=== PATIENT | male | born 1975 | race Two or more races ===

== ENCOUNTER 2017-08-08 22:16 | Emergency (ER) | payer SELFPAY ==
[2017-08-08 22:29] VITALS: BP 114/75; PULSE 78; RESP 20; TEMP 98.1; O2SAT 98
--- NOTE | 2017-08-09 07:19 | C.PDOC ---
History Of Present Illness 41 y/o male is brought to the ED by ambulance for evaluation of a head injury. Patient possibly had two falls and sustained a laceration to the back of his head and an injury to his face. Patient is now alert and oriented and denies LOC. He admit to drinking alcohol earlier today. Otherwise, he denies vision change, neck pain, nausea, vomiting. Time Seen by Provider: 08/08/17 22:37 Chief Complaint (Nursing): Abnormal Skin Integrity History Per: Patient History/Exam Limitations: no limitations Onset/Duration Of Symptoms: Hrs Current Symptoms Are (Timing): Still Present Additional History Per: Patient Past Medical History Reviewed: Historical Data, Nursing Documentation, Vital Signs Vital Signs: Last Vital Signs Temp 98.1 F 08/08/17 22:28 Pulse 78 08/08/17 22:28 Resp 20 08/08/17 22:28 BP 114/75 08/08/17 22:28 Pulse Ox 98 08/09/17 07:22 - Medical History PMH: No Chronic Diseases Surgical History: No Surg Hx Family History: States: Unknown Family Hx - Social History Hx Alcohol Use: Yes Hx Substance Use: No Review Of Systems Eyes: Negative for: Vision Change Neurological: Negative for: Other (LOC ) Psych: Positive for: Other (EtOH intoxication ) Physical Exam - Physical Exam Appears: Non-toxic, No Acute Distress Skin: Normal Color, Warm, Dry Head: Abrasion (left forehead), Laceration (2.5cm stellate to occipital scalp ) , No Other (bony tenderness ) Eye(s): bilateral: Normal Inspection, PERRL, EOMI Oral Mucosa: Moist Neck: Supple Chest: Symmetrical, No Deformity, No Tenderness Cardiovascular: Rhythm Regular, No Murmur Respiratory: Normal Breath Sounds, No Rales, No Rhonchi, No Wheezing Gastrointestinal/Abdominal: Normal Exam, Soft, No Tenderness Back: Normal Inspection Extremity: Normal ROM, Capillary Refill (less than 2 seconds ) Extremity: Bilateral: Atraumatic Neurological/Psych: Oriented x3, Normal Speech, Normal Cognition, Normal Motor, Normal Sensation Gait: Steady ED Course And Treatment O2 Sat by Pulse Oximetry: 98 (on RA) Pulse Ox Interpretation: Normal Progress Note: Patient was advised to undergo Head CT due to head injury and moderate alcohol use. Patient became agitated and began refusing CT scan (Pt's friend, who was present at bedside tried covincing pt to have CT) but pt became loud and verbally abusive to staff. Patient had left the ED upon return to bedside to perform lac repair pt was not in room, checked all areas of ER- pt elpoed. Disposition - Disposition Disposition: ELOPEMENT - ER ONLY Disposition Time: 23:00 Condition: UNKNOWN Forms: [facility] ([place]) - Clinical Impression Clinical Impression: Head injury due to trauma, Alcohol use - PA / MATURITY CHECKER / Resident Statement MD/DO has reviewed & agrees with the documentation as recorded. - Scribe Statement The provider has reviewed the documentation as recorded by the Scribe (Chrissy Flores) All medical record entries made by the Scribe were at my direction and personally dictated by me. I have reviewed the chart and agree that the record accurately reflects my personal performance of the history, physical exam, medical decision making, and the department course for this patient. I have also personally directed, reviewed, and agree with the discharge instructions and disposition.
== END 2017-08-08 22:37 | disposition left against medical advice (07) ==
LOC: C.ER 22:16
DX: S09.90XA Unspecified injury of head, initial encounter (principal); X58.XXXA Exposure to other specified factors, initial encounter; Z72.89 Other problems related to lifestyle